=== PATIENT | male | born 1980 | race Caucasian/White ===

== ENCOUNTER 2020-07-24 17:20 | Emergency (ER) | payer BC | END 2020-07-24 18:03 | disposition home or self-care (01) | LOC: JVIRT 17:20 | DX: Z03.818 Encounter for observation for suspected exposure to other biological agents ruled out (principal) | CPT/HCPCS: C9803; Q3014-GT; U0003 ==

== ENCOUNTER 2020-08-25 15:30 | Emergency (ER) | payer BC | END 2020-08-25 18:45 | disposition home or self-care (01) | LOC: JVIRT 15:30 | DX: R05 Cough (principal); Z20.828 Contact with and (suspected) exposure to other viral communicable diseases | CPT/HCPCS: C9803; G2012-GT; U0003 ==

== ENCOUNTER 2024-11-05 10:02 | Day surgery (SDC) | payer BC ==
[2024-11-01 10:53] VITALS: BMI 29.9
[2024-11-05 11:19] VITALS: RESP 20; TEMP 97.2
[2024-11-05 13:21] VITALS: BP 104/56; PULSE 83
== END 2024-11-05 13:10 | disposition home or self-care (01) ==
LOC: FASU-ENDO 10:02
PROVIDERS: ATTEND Internal Medicine Gastroenterology
PROC: 0DB98ZX Excision of Duodenum, Via Natural or Artificial Opening Endoscopic, Diagnostic (ICD-10-PCS; 2024-11-05)
PROC: 0DB68ZX Excision of Stomach, Via Natural or Artificial Opening Endoscopic, Diagnostic (ICD-10-PCS; 2024-11-05)
PROC: 0DJD8ZZ Inspection of Lower Intestinal Tract, Via Natural or Artificial Opening Endoscopic (ICD-10-PCS; principal; 2024-11-05 11:41)
DX: K62.0 Anal polyp (principal); K29.50 Unspecified chronic gastritis without bleeding; R10.9 Unspecified abdominal pain; R10.13 Epigastric pain
CPT/HCPCS: 88305-TC; 88342-TC